=== PATIENT | female | born 1975 | race African-American/Black ===

== ENCOUNTER 2020-09-20 13:39 | Outpatient (CLI) | payer MEDICARE, MEDICAID, SELFPAY ==
[2020-09-20 15:19] LABS: Beta HCG Quantitative < 2.39 mIU/ML
[2020-09-24 05:04] LABS: LH 4.5 mIU/mL (***); Prolactin 16.3 ng/mL (***)
[2020-09-24 23:11] LABS: Estradiol, Ultrasensitive 241 pg/mL
== END 2020-09-20 13:40 | disposition home or self-care (01) ==
PROVIDERS: Visit Provider Student in an Organized Health Care Education/Training Program
DX: N92.6 Irregular menstruation, unspecified (principal); R10.2 Pelvic and perineal pain
CPT/HCPCS: 36415; 82670; 83001; 83002; 84146; 84443; 84702

== ENCOUNTER → 2021-03-07 02:53 | Outpatient (CLI) | payer MEDICARE, MEDICAID, SELFPAY ==
[2021-03-07 20:07] LABS: SARS-CoV-2 RNA PCR Negative
== END ==
PROVIDERS: PCP Student in an Organized Health Care Education/Training Program; Visit Provider Internal Medicine Gastroenterology
DX: Z01.812 Encounter for preprocedural laboratory examination (principal); Z20.822 Contact with and (suspected) exposure to COVID-19
CPT/HCPCS: C9803; U0003; U0005

== ENCOUNTER 2021-03-10 03:11 | Day surgery (SDC) | payer MEDICARE, MEDICAID, SELFPAY ==
[2021-03-02 10:33] VITALS: BMI 37.8
[2021-03-10] MEDS: LACTATED RINGERS 1,000 ML 150 ML IV CONT (07:31)
[2021-03-10 07:35] VITALS: BP 127/73; PULSE 89; RESP 16; TEMP 35.8; O2SAT 100; BMI 38.9
--- NOTE | 2021-03-10 08:14 | PM.HPGS ---
History of Present Illness History of Present Illness Consent: Risks, benefits, and alternatives have been discussed and questions answered. Patient agrees to proceed with procedure. Chief complaint: neoplasm screening Narrative: Lucia Disla is a 45 year old female here for first screening colonoscopy Review of Systems Constitutional: Constitutional: Denies headache(s) and Denies weakness Eyes: Eyes: Denies blurry vision ENT: Reports Normal hearing present, Denies headache(s) and Denies neck pain Cardiovascular: Cardiovascular: Denies chest pain and Denies dyspnea Respiratory: Respiratory: Denies dyspnea Gastrointestinal: Gastrointestinal: Reports no additional gastrointestinal complaints Genitourinary: Genitourinary: Denies dysuria Musculoskeletal: Musculoskeletal: Denies neck pain Integumentary/Breasts: Skin/Breast: Denies dry skin Neurologic: Reports Normal hearing present, Denies headache(s) and Denies weakness Psychiatric: Psychiatric: Denies anxiety Endocrine: Endocrine: Denies change in body appearance Hematologic/Lymphatic: Hematologic/Lymphatic: Denies easy bleeding Allergic/Immunologic: Allergic/Immunologic: Denies urticaria PMF Past Medical History Medical History (Updated 03/10/21 @ 08:14 by Mal Vazquez MD) Acid reflux Asthma Colon cancer screening COPD (chronic obstructive pulmonary disease) History of cocaine use stopped 2009 History of gallstones History of miscarriage History of vaginal delivery x 4 Thyroid disorder Surgical History Surgical History History of cholecystectomy History of hip replacement [place] teeth removed Social History Social History Smoking status: Current every day smoker Tobacco type: cigarettes Alcohol intake: former Substance use: never Substance use type: does not use Living arrangements: with family Spiritual care concerns: No Meds Home Medications and Allergies Home Medications Medication Instructions Recorded Confirmed Type No Home Medications 03/02/21 03/10/21 History Allergies Allergy/AdvReac Type Severity Reaction Status Date / Time ibuprofen Allergy Unknown RASH Verified 03/10/21 07:19 Vital Signs Vital Signs - 24 hr 03/10/21 07:35 Temperature 96.4 F L Pulse Rate 89 Respiratory Rate 16 Blood Pressure 127/73 Pulse Oximetry 100 Exam Const: General: comfortable and no acute distress HENMT: General nose exam: Normal nares present Eyes: General: appearance normal, both eyes and all related structures Neck: Neck: no JVD Resp: Auscultation: clear to auscultation bilaterally Cardio: Rate: regular rate Rhythm: regular rhythm GI: Inspection: non-distended GI Palp: Yes Soft to palpation Skin: General skin exam: normal color Neuro: General: gait normal Speech: normal speech Extrem: General: normal to inspection Psych: Mental Status: mental status grossly normal Assessment and Plan Assessment and plan (1) Colon cancer screening: Code(s): Z12.11 - Encounter for screening for malignant neoplasm of colon Status: Acute Assessment and Plan: colonoscopy
--- NOTE | 2021-03-10 08:18 | P.PNAN_ITS ---
Anes - Initial Pre Proc Eval Procedure: Operation Date: 03/10/21 08:30 Proposed Procedures p Screening Colonoscopy - Mal Vazquez MD Date/Time: 03/10/21 08:18 Surgeon: Mal Vazquez MD Pre Op Diagnosis: neoplasm screening Patient Data Age: 45 Gender: F Height: 5 ft 3 in Weight: 99.8 kg Last Vital Signs Temp 96.4 F L 03/10/21 07:35 Pulse 89 03/10/21 07:35 Resp 16 03/10/21 07:35 BP 127/73 03/10/21 07:35 Pulse Ox 100 03/10/21 07:35 Allergies Allergy/AdvReac Type Severity Reaction Status Date / Time ibuprofen Allergy Unknown RASH Verified 03/10/21 07:19 Home Medications Medication Instructions Recorded Confirmed Type No Home Medications 03/02/21 03/10/21 History Patient hx anesthesia problems: none Family hx anesthesia problems: none PMFSH Past Medical History Medical History (Updated 03/10/21 @ 08:14 by Mal Vazquez MD) Acid reflux Asthma Colon cancer screening COPD (chronic obstructive pulmonary disease) History of cocaine use stopped 2009 History of gallstones History of miscarriage History of vaginal delivery x 4 Thyroid disorder Surgical History Surgical History History of cholecystectomy History of hip replacement [place] teeth removed Social History Social History Smoking status: Current every day smoker Tobacco type: cigarettes Alcohol intake: former Substance use: never Substance use type: does not use Living arrangements: with family Spiritual care concerns: No Anes - Eval Final PreProcedure Day of Procedure 03/10/21 08:18 Patient weight: morbidly obese Heart: regular rate and rhythm Lungs: clear to auscultation Airway: Mallampati scale class II Neurological: alert and oriented Last oral intake: >/= 8 hours ASA classification: III Emergent: no Anesthetic plan: proceed Anesthesia type and monitoring: general GIVS and standard monitoring Informed Consent: The patient's anesthetic plan and its attendant risks and benefits were discussed with the patient/family/POA. Questions were solicited and answers provided to the satisfaction of the patient/family/POA.
[2021-03-10 08:45] VITALS: BP 103/39; PULSE 74; RESP 20; O2SAT 100
[2021-03-10 08:55] VITALS: BP 117/63; PULSE 73; RESP 20; O2SAT 100
[2021-03-10 09:05] VITALS: BP 132/68; PULSE 74; RESP 18; O2SAT 100
== END 2021-03-10 09:18 | disposition home or self-care (01) ==
PROVIDERS: PCP Student in an Organized Health Care Education/Training Program; Visit Provider Internal Medicine Gastroenterology
PROC: 0DJD8ZZ Inspection of Lower Intestinal Tract, Via Natural or Artificial Opening Endoscopic (ICD-10-PCS; CPT 45378; principal; 2021-03-10 08:30)
DX: Z12.11 Encounter for screening for malignant neoplasm of colon (principal); K57.30 Diverticulosis of large intestine without perforation or abscess without bleeding; D12.5 Benign neoplasm of sigmoid colon; K63.5 Polyp of colon; K64.8 Other hemorrhoids; Z87.891 Personal history of nicotine dependence; E66.01 Morbid (severe) obesity due to excess calories; Z68.39 Body mass index [BMI] 39.0-39.9, adult
CPT/HCPCS: 45385; 88305; C9803; J2001; J2704; J7120; U0003; U0005

== ENCOUNTER 2024-12-29 10:05 | Outpatient (CLI) | payer MEDICARE, MEDICAID, SELFPAY ==
--- NOTE | ~2024-12-29 | US_ITS ---
EXAMINATION: US thyroid DATE: 12/29/2024 10:43 INDICATION: Nontoxic thyroid nodule. TECHNIQUE: Multiple ultrasound images of the thyroid were obtained. COMPARISON: None. FINDINGS: The right thyroid lobe measures 5.8 x 2.1 x 2.9 cm. The left thyroid lobe measures 6.3 x 2.4 x 3.1 c m. In the left thyroid lobe, there is a 9 mm solid, hypoechoic, wider than tall nodule with smooth m argin and punctate echogenic foci (TI-RADS TR5). In the left thyroid lobe, there is a 2.8 cm almost e ntirely solid, hypoechoic, wider than tall nodule with smooth margin without echogenic foci (TR4). In the right thyroid lobe, there is a 13 mm mixed cystic and solid, hypoechoic, wider than tall nodule with lobular margin without echogenic foci (TR4). IMPRESSION: 1. Multinodular goiter. Ultrasound-guided fine-needle aspiration of the 2.8 cm left thyroid nodule is recommended. Reviewed, dictated and finalized at location B.
--- NOTE | ~2024-12-29 | XR_ITS ---
XR shoulder LT min 2V Ordering provider: Marv Figueroa, YESSICA History: . PAIN IN LT SHOULDER/NONTOX THYROID NODULE . Comparison: None. FINDINGS: BONES: No acute fracture or dislocation. JOINT SPACES: The acromioclavicular joint shows mild osteoarthritic changes. The glenohumeral joint i s normal. SOFT TISSUES: Normal. IMPRESSION: No acute osseous abnormality left shoulder. Mild osteoarthritic changes of the left acromioclavicular joint. Reviewed, dictated and finalized at location A.
--- OUTSIDE RECORDS SUMMARY | 2024-12-29 11:27 | XMS_ITS | Clinical Summary ---
Author Organization [facility] Address [address] [place] [id number] Care Team Providers Care Fire Engine Operator Name Role Phone Nuzhat Andersen MD Primary Care Provider [phone] Allergies Active Allergy Reactions Criticality Noted Date Comments Ibuprofen Rash Low 03/12/2022 Social History Tobacco Use Types Packs/Day Years Used Date Smoking Tobacco: Every Day Alcohol Use Standard Drinks/Week Comments Not Currently 0 (1 standard drink = 0.6 oz pur e alcohol) Comments Unknown Sex and Gender Information Value Date Recorded Sex Assigned at Not on file Legal Sex Female 9:00 AM CDT Gender Identity Not on file Sexual Orientation Not on file Last Filed Vital Signs Vital Sign Reading Time Taken Comments Blood Pressure 149/85 03/12/2022 2:30 PM CDT Pulse 63 03/12/2022 2:30 PM CDT Temperature 36.4 C (97.5 F) 03/12/2022 9:09 AM CDT Respiratory Rate 21 03/12/2022 2:30 PM CDT Oxygen Saturation 98% 03/12/2022 2:30 PM CDT Inhaled Oxygen Concentration - - Weight 88 kg (194 lb 0.1 oz) 03/12/2022 9:09 AM CDT Height 160 cm (5' 3 ) 03/12/2022 9:09 AM CDT Body Mass Index 34.37 03/12/2022 9:09 AM CDT Plan of Treatment Health Maintenance Due Date Last Done Comments Cervical Cancer Screening Pa p Smear (Age 30 to 64) Every 3 Years 1974 Colorectal Cancer Screening Colonoscopy (10 Years) 1974 Annual Physical 1977 Pneumococcal Vaccine: Pediatrics (0 to 5 Years) and At-Risk Patients (6 to 64 Years) (1 of 2 - PCV) 1980 Hepatitis C 1992 DTaP, Tdap and Td Vaccines ( 1 - Tdap) 1993 Hepatitis B Vaccines (1 of 3 - 19+ 3-dose series) 1993 Cervical Cancer Screening Pa p with HPV Testing (Age 30 to 64) Every 5 Years 2004 Cervical Cancer Screening wi th HPV 2004 Mammogram Screening 2014 COVID-19 Vaccine (3 - 2023-2 5 season) 2024 02/10/2021, 01/24/2021 Influenza Adult (#1) 2024 07/17/2016 Zoster Vaccines (1 of 2) 2024 Meningococcal B Vaccine Aged Out No l onger eligible based on patient's age to complete this topic Meningococcal Vaccine Aged Out No heike nona eligible based on patient's age to complete this topic RSV Immunizations Under 20 Months Aged Out No longer eligible b ased on patient's age to complete this topic Insurance MEDICAID UHC Care Teams Fire Engine Operator Relationship Specialty Start Date End Date Nuzhat Andersen MD [address] [place] [address] PCP - General INTERNAL MEDICINE 03/12/22
--- OUTSIDE RECORDS SUMMARY | 2024-12-29 11:27 | XMS_ITS | CONTINUITY OF CARE DOCUMENT ---
Author Name rosaline waggoner Address Unknown Organization [facility] Address [address] [address] [place] [address] Phone [phone] Care Team Providers Care [employer] Superintendent [employer] Name Role Phone Dejon Dong MD Unavailable [phone] Dejon Dong MD Unavailable INSURANCE PROVIDERS Payer name Policy type / Coverage type [place] red democrat ID [facility]ARE [id number] (PPO C-SNP) Commercial insurance company [id number] HEALTHCARE AND FAMILY SERVICES Medicaid 1 [id number]
--- OUTSIDE RECORDS SUMMARY | 2024-12-29 11:27 | XMS_ITS | Patient Health Summary ---
Author Organization [facility] Medi[employer]eting Address [address] [place] [address] Care Team Providers Care Business Services Sales Agent Name Role Phone Addi Emmanuel MD Primary Care Provider [phone] Note from [facility],non-owned Affiliates and Associated Physician Practices is amultiple site organization consisting of ambulatory clinics and hospital sitesin [place], [place], [place] and [place]. This disclosure is being madepursuant to the Care Everywhere program and may not contain all information available regarding this patient. Last updated 18.[facility] Allergies * Ibuprofen(Nausea and/or Vomiting,Rash) -High Criticality Medications * Be aware that medications may not be up to date on this document. Alwaysverify current medications with the patient. * Vit-Fe Fumarate-FA ( VITAMIN) 28-0.8 MG tablet Take 1 Tab by mouth once daily * calcium carbonate - vitamin D (CALTRATE + D) 600-800 MG-UNIT tablet Take 1,500 tablets by mouth 2 times daily * multivitamin (OPURITY) CHEW tablet Take 1 tablet every day by oral route. * fluconazole (DIFLUCAN) 150 MG tablet(Started 06/18/2018) * norethindrone (AYGESTIN) 5 MG tablet(Started 04/01/2018) * terconazole (TERAZOL 3) 0.8 % vaginal cream(Started 06/18/2018) * nitrofurantoin monohyd macro crystals (MACROBID) 100 MG capsule(Started 07/23/2018) Take 1 capsule by mouth 2 times daily with morning and evening meal * traMADol (ULTRAM) 50 MG tablet Take 50 mg by mouth every 6 hours as needed for Pain Active Problems Problem Noted Date Diagnosed Date Supervision of high-risk of elderly mu ltigravida 07/27/2016 Sickle cell trait 07/27/2016 Asthma 07/27/2016 GERD (gastroesophageal reflux disease) 6 Arthritis 07/27/2016 H/O degenerative disc disease 07/27/2016 Depression 07/27/2016 Schizophrenia 07/27/2016 Eczema 07/27/2016 Hearing loss in right ear 07/27/2016 H/O delivery, currently 016 Social History Tobacco Use Types Packs/Day Years Used Date Smoking Tobacco: Every Day Cigarettes Smokeless Tobacco: Never Tobacco Cessation:Ready to Q uit: No; Counseling Given: Yes Alcohol Use Standard Drinks/Week Comments No 0 (1 standard drink = 0.6 oz pur e alcohol) Sex and Gender Information Value Date Recorded Sex Assigned at Not on file Gender Identity Not on file Sexual Orientation Not on file Last Filed Vital Signs Vital Sign Reading Time Taken Comments Blood Pressure 133/67 05/07/2019 9:16 PM CDT Pulse 63 05/07/2019 10:18 PM CDT Temperature 36.6 C (97.9 F) 05/07/2019 6:08 PM CDT Respiratory Rate 19 05/07/2019 10:18 PM CDT Oxygen Saturation 100% 05/07/2019 10:18 PM CDT Inhaled Oxygen Concentration - - Weight 97.1 kg (214 lb) 05/07/2019 6:08 PM CDT Height 160 cm (5' 3 ) 05/07/2019 6:08 PM CDT Body Mass Index 37.91 05/07/2019 6:08 PM CDT Procedures * US PELVIS W TRANSVAG W DOP NON OB(Performed 05/07/2019) Performed for Pelvic pain in female * HCG BETA BLOOD QUANTITATIVE(Performed 05/07/2019) * CBC W AUTO DIFFERENTIAL(Performed 05/07/2019) * BASIC METABOLIC PANEL (CALCIUM TOTAL)(Performed 05/07/2019) * CULTURE URINE(Performed 07/23/2018) * MRI PITUITARY AND BRAIN WWO CONT(Performed 07/12/2018) Performed for Galactorrhea * CREATININE BLOOD - POINT OF CARE (IP)(Performed 07/12/2018) Performed for Galactorrhea * IMAGING/RADIOLOGY/XRAY RESULTS ORDER(Performed 07/07/2018) * PROC US ECHOGRAPHY TRANSVAGINAL(Performed 07/04/2018) Performed for Irregular periods/menstrual cycles * ANTI-MULLERIAN HORMONE(Performed 07/02/2018) * GLUCOSE - POINT OF CARE(Performed 08/23/2016) * CBC W AUTO DIFFERENTIAL(Performed 08/23/2016) * HCG BETA BLOOD QUANTITATIVE(Performed 08/23/2016) * TYPE + SCREEN PANEL(Performed 08/17/2016) * COMPREHENSIVE METABOLIC PANEL(Performed 08/17/2016) * CBC W AUTO DIFFERENTIAL(Performed 08/17/2016) * US OB TRANSVAGINAL DOPPLER(Performed 08/17/2016) Performed for Threatened miscarriage (HCC) * GLUCOSE PROTEIN KETONE URINE - POINT OF CAR(Performed 08/02/2016) * SONOGRAM - COMPLETE(Performed 08/02/2016) * XR CHEST 2VW(Performed 08/18/2014) * EKG 12-LEAD(Performed 08/18/2014) * LAB MISC TEST(Performed 05/04/2014) * LOGAN W/REFLEX IFA PATTERN(Performed 05/04/2014) * VITAMIN D 25-HYDROXY(Performed 05/04/2014) * RHEUMATOID FACTOR BLOOD QUANTITATIVE(Performed 05/04/2014) * ERYTHROCYTE SEDIMENTATION RATE(Performed 05/04/2014) * TSH(Performed 05/04/2014) * BASIC METABOLIC PANEL (CALCIUM TOTAL)(Performed 05/04/2014) * URIC ACID BLOOD(Performed 05/04/2014) * C-REACTIVE PROTEIN(Performed 05/04/2014) * CBC W AUTO DIFFERENTIAL(Performed 05/04/2014) * CBC W AUTO DIFFERENTIAL(Performed 05/04/2014) * SS-B (SJOGREN'S) ANTIBODY(Performed 03/17/2014) * SS-A (SJOGREN'S) ANTIBODY(Performed 03/17/2014) * LOGAN W/REFLEX IFA PATTERN(Performed 03/17/2014) * VITAMIN D 25-HYDROXY D2+D3(Performed 03/17/2014) * ALDOLASE(Performed 03/17/2014) * HEPATITIS B SURFACE ANTIGEN W RFLX CONFIRMATION(Performed 03/17/2014) * HEPATITIS B CORE ANTIBODY TOTAL(Performed 03/17/2014) * HEPATITIS C ANTIBODY(Performed 03/17/2014) * TSH(Performed 03/17/2014) * LDH BLOOD(Performed 03/17/2014) * CK BLOOD(Performed 03/17/2014) * COMPREHENSIVE METABOLIC PANEL(Performed 03/17/2014) * ERYTHROCYTE SEDIMENTATION RATE(Performed 03/17/2014) * C-REACTIVE PROTEIN(Performed 03/17/2014) * CBC W AUTO DIFFERENTIAL(Performed 03/17/2014) * URINALYSIS REFLEX TO MICROSCOPIC NO CULTURE(Performed 03/17/2014) * CBC W AUTO DIFFERENTIAL(Performed 03/17/2014) * XR SI JOINTS 3VW OR MORE(Performed 03/17/2014) * MRI CERVICAL SPINE WWO CONT(Performed 03/17/2014) * CREATININE BLOOD - POCT (IP) [facility](Performed 03/17/2014) * XR PELVIS W BILAT HIP 2VW(Performed 02/02/2014) * LOGAN BLOOD SCREEN(Performed 11/30/2013) * RHEUMATOID FACTOR BLOOD QUANTITATIVE(Performed 11/30/2013) * ERYTHROCYTE SEDIMENTATION RATE(Performed 11/30/2013) * VITAMIN D 25-HYDROXY(Performed 11/30/2013) * URIC ACID BLOOD(Performed 11/30/2013) * TSH(Performed 11/30/2013) * BASIC METABOLIC PANEL (CALCIUM TOTAL)(Performed 11/30/2013) * CBC W AUTO DIFFERENTIAL(Performed 11/30/2013) * XR LUMBAR SPINE 2 OR 3VW(Performed 11/13/2013) * XR LUMBAR SPINE 2 OR 3VW(Performed 08/28/2013) Results * US PELVIS W TRANSVAG W DOP NON OB (05/07/2019 8:33 PM CDT) Anatomical Region Laterality Modality Pelvis Ultrasound 05/07/2019 8:40 PM CDT Impressions 05/07/2019 8:43 PM CDT Left ovarian complex cyst. Follow-up recommended. Reading Radiologist: Jr Darby MD on 05/07/2019 at 8:43 PM Narrative 05/07/2019 8:43 PM CDT Pelvic sonogram. HISTORY: Pelvic pain, history of left ovarian cyst. Images show the uterus measuring 8.8 x 4.7 x 4.8 cm. Endometrial thickness is 8 mm. There are few calcifications seen in the endometrial canal. The right ovary is 1.1 x 2.0 cm with normal color flow signal and waveform analysis. Left ovary is 3.8 x 1.7 x 2.6 cm and contains a 2.4 x 1.6 cm echogenic cyst or mass which is nonspecific. Follow-up is recommended. There is normal color flow signal and waveform analysis. Procedure Note Jr Darby MD - 05/07/2019 Pelvic sonogram. HISTORY: Pelvic pain, history of left ovarian cyst. Images show the uterus measuring 8.8 x 4.7 x 4.8 cm. Endometrial thickness is 8 mm. There are few calcifications seen in the endometrial canal. The right ovary is 1.1 x 2.0 cm with normal color flow signal and waveform analysis. Left ovary is 3.8 x 1.7 x 2.6 cm and contains a 2.4 x 1.6 cm echogenic cyst or mass which is nonspecific. Follow-up is recommended. There is normal color flow signal and waveform analysis. IMPRESSION Left ovarian complex cyst. Follow-up recommended. Reading Radiologist: Jr Darby MD on 05/07/2019 at 8:43 PM Zahida Lucio MD US ORDERABLES * (ABNORMAL) CBC W AUTO DIFFERENTIAL (05/07/2019 6:16 PM CDT) Only the most recent of8 resultswithin the time period is included. WBC 8.4 4.4 - 10.7 x10E9/L 05/07/2019 6:33 PM CDT [facility] WBC Corrected x10E9/L 05/07/2019 6:33 PM CDT [facility] RBC 4.16 3.80 - 5.20 x10E12/L 05/07/2019 6:33 PM CDT [facility] Hemoglobin 11.5(L) 12.0 - 15.6 gm/dL 05/07/2019 6:33 PM CDT [facility] Hematocrit 35.6(L) 35.9 - 45.5 % 05/07/2019 6:33 PM CDT [facility] MCV 85.6 80.7 - 98.3 fl 05/07/2019 6:33 PM CDT [facility] MCH 27.6 26.7 - 34.0 pg 05/07/2019 6:33 PM CDT [facility] MCHC 32.3 30.8 - 35.9 gm/dL 05/07/2019 6:33 PM T [facility] Platelet Count 269 153 - 416 x10E9/L 05/07/2019 6:33 PM [facility] RDW-CV 14.6 12.1 - 14.9 % 05/07/2019 6:33 PM [facility] MPV 10.4 9.4 - 12.9 fl 05/07/2019 6:33 PM [facility] Neutrophils % 62.3 44.0 - 73.0 % 05/07/2019 6:33 PM [facility] Lymphocytes % 27.7 20.0 - 43.0 % 05/07/2019 6:33 PM [facility] Monocytes % 7.5 5.0 - 13.0 % 05/07/2019 6:33 PM [facility] Eosinophils % 1.8 0.0 - 6.0 % 05/07/2019 6:33 PM [facility] Basophils % 0.5 0.0 - 2.0 % 05/07/2019 6:33 PM [facility] Immature Granulocytes 0.2 0 - 1 % 05/07/2019 6:33 PM [facility] Neutrophil Absolute 5.23 2.01 - 7.14 x10E9/L 05/07/2019 6:33 PM [facility] Lymphocytes Absolute 2.32 1.07 - 3.94 x10E9/L 05/07/2019 6:33 PM [facility] Monocytes Absolute 0.63 0.26 - 1.07 x10E9/L 05/07/2019 6:33 PM [facility] Eosinophils Absolute 0.15 0 - 0.47 x10E9/L 05/07/2019 6:33 PM [facility] Basophils Absolute 0.04 0 - 0.08 x10E9/L 05/07/2019 6:33 PM [facility] Immature Granulocytes Absolute 0.02 0.00 - 0.06 x10E9/L 05/07/2019 6:33 PM [facility] nRBC Auto 0 /100 WBC 05/07/2019 6:33 PM [facility] Blood BLOOD SPECIMEN / Unknown Venipuncture / Unknown 05/07/2019 6:16 PM CDT 05/07/2019 6:24 PM CDT Zahida Lucio MD LAB - HEMATOLOGY ORD CLEMENTE Performing Organization Address City/[facility]/ZIP Co de Phone Number [facility] [address] [place] [address] * (ABNORMAL) BASIC METABOLIC PANEL (CALCIUM TOTAL) (05/07/2019 6:16 PM CDT) Only the most recent of3 resultswithin the time period is included. [facility] Glucose 79 74 - 106 mg/dL 05/07/2019 6:45 PM CDT [facility] Sodium 138 136 - 145 mmol/L 05/07/2019 6:45 PM CDT [facility] Potassium 4.3 3.5 - 5.1 mmol/L 05/07/2019 6:45 PM CDT [facility] Chloride 108(H) 98 - 107 mmol/L 05/07/2019 6:45 PM CDT [facility] CO2 21(L) 23 - 31 mmol/L 05/07/2019 6:45 PM CDT [facility] Calcium 9.5 8.4 - 10.2 mg/dL 05/07/2019 6:45 PM CDT [facility] Anion Gap 9 8 - 16 mmol/L 05/07/2019 6:45 PM CDT [facility] BUN 10 7 - 18.7 mg/dL 05/07/2019 6:45 PM CDT [facility] Creatinine 0.91 0.55 - 1.02 mg/dL 05/07/2019 6:45 PM CDT [facility] eGFR by MDRD >60 >60 mL/min/1.7 3m2 05/07/2019 6:45 PM CDT [facility] eGFR by MDRD >60 >60 mL/min/1.7 3m2 05/07/2019 6:45 PM CDT [facility] Blood BLOOD SPECIMEN / Unknown Venipuncture / Unknown 05/07/2019 6:16 PM CDT 05/07/2019 6:24 PM CDT Zahida Lucio MD LAB - CHEMISTRY HELEN LIN [facility] [address] [place] [address] * HCG BETA BLOOD QUANTITATIVE (05/07/2019 6:16 PM CDT) Only the most recent of2 resultswithin the time period is included. [facility] hCG Quantitative <1.20 mIU/mL 05/07/20 19 6:55 PM CDT [facility] Blood BLOOD SPECIMEN / Unknown Venipuncture / Unknown 05/07/2019 6:16 PM CDT 05/07/2019 6:24 PM CDT Narrative [facility] - 05/07/2019 6:55 PM CDT hCG Reference Range, mIU/mL: Males 0-2.0 Non Females 0-6.0 Perimenopausal Females ages 41-55* 0-7.7 Postmenopausal Females age >55* 0-14 Females, Weeks after Last Menstrual Period 0.2-1 week 5-50 1 - 2 weeks 50-500 2 - 3 weeks 100-5000 3 - 4 weeks 500-10,000 4 - 5 weeks 1000-50,000 5 - 6 weeks 10,000-100,000 6 - 8 weeks 15,000-200,000 2 - 3 months 10,000-100,000 Trophoblastic Disease >100,000 *In higher than expected hCG in females > age 40, a serum FSH >20 IU/L makes unlikely. Zahida Lucio MD LAB - CHEMISTRY HELEN Vivas Organization Address [facility] de Phone Number [facility] [address] [place] [address] * CULTURE URINE (07/23/2018) [facility] Culture [facility] Comment: CULTURE, URINE, ROUTINE MICRO NUMBER: [id number] TEST STATUS: FINAL SPECIMEN SOURCE: URINE, MIDSTREAM SPECIMEN QUALITY: ADEQUATE RESULT: Multiple organisms present, each less than 10,000 CFU/mL. These organisms, commonly found on external and internal genitalia, are considered to be colonizers. No further testing performed. Test Performed at: [facility] [id number] ARON MONTEMAYOR MD 07/23/2018 07/24/2018 1:5 3 AM CDT Tristin Valderrama MD LAB - MICROBIOLOGY ORDERABLES [facility] [address] [place] [address] * MRI PITUITARY AND BRAIN WWO CONT (07/12/2018 9:27 AM CDT) Anatomical Region Laterality Modality Magnetic Resonan ce 07/12/2018 9:31 AM CDT Impressions 07/12/2018 10:06 AM CDT No pituitary adenoma identified. Edited by Nighat Najera on 07/12/2018 9:51 AM Reading Radiologist: Jr Darby MD on 07/12/2018 at 10:06 AM Narrative 07/12/2018 10:06 AM CDT MRI BRAIN/MRI PITUITARY HISTORY: Galactorrhea. Images are provided using T1- and T2-weighted sequences. Postcontrast-enhanced images after 20 mL of Dotarem are also reviewed. The diffusion-weighted study shows no evidence for an acute infarct. No intracranial mass or hemorrhage is seen. No extracerebral fluid collections are present. Thin slice imaging through the pituitary gland shows the gland to have a normal size and homogeneous normal enhancement. The pituitary stalk is in midline. Procedure Note Jr Darby MD - 07/12/2018 MRI BRAIN/MRI PITUITARY HISTORY: Galactorrhea. Images are provided using T1- and T2-weighted sequences. Postcontrast-enhanced images after 20 mL of Dotarem are also reviewed. The diffusion-weighted study shows no evidence for an acute infarct. No intracranial mass or hemorrhage is seen. No extracerebral fluid collections are present. Thin slice imaging through the pituitary gland shows the gland to have a normal size and homogeneous normal enhancement. The pituitary stalk is in midline. IMPRESSION No pituitary adenoma identified. Edited by Nighat Najera on 07/12/2018 9:51 AM Reading Radiologist: Jr Darby MD on 07/12/2018 at 10:06 AM Tristin Valderrama MD MR ORDERABLES * CREATININE BLOOD - POINT OF CARE (IP) (07/12/2018 8:47 AM CDT) Creatinine POCT 1.16 0.7 - 1.2 mg/dL [facility] POCT TESTING QC Verified Yes Yes [facility] POC T TESTING Blood BLOOD SPECIMEN / Unknown 07/12/2018 8:47 AM CDT Tristin Valderrama MD LAB - POINT OF CARE ORDERABLES [facility] POCT TESTING [address] [phone] * IMAGING/RADIOLOGY/XRAY RESULTS ORDER (07/07/2018 7:31 AM CDT) Anatomical Region Laterality Modality Other Narrative 07/07/2018 7:31 AM CDT Ordered by an unspecified provider. Scanned Document IMAGING * PROC US ECHOGRAPHY TRANSVAGINAL (07/04/2018) Tristin Valderrama MD PROCEDURE/MINOR JUAN ALBERTO GICAL ORDERABLES * ANTI-MULLERIAN HORMONE (07/02/2018 11:25 AM CDT) Anti-Mullerian Hormone 0.305 ng/mL [facility] INSURANCE BILL Comment: For assays employing antibodies, the possibility exists for interference by heterophile antibodies in the samples.1 1. Danie Martinez. Interferences in Immunoassays - still a threat. Clin. Chem. 2000; 46: 5786-1969. Reference Range: Females 41 - 46y: 0.26 - 5.81 Median 0.58 AMH concentrations of >= 1.06 ng/mL is correlated with a better response to ovarian stimulation, produced more retrievable oocytes and higher odds of live according to Glemjer et al. Fertility and Sterility. 2010: 94:2459-7271. The current AMH test method correlates with the study method with a slope of 0.94. Females at risk of ovarian hyperstimulation syndrome or polycystic ovarian syndrome (PCOS) may exhibit elevated serum AMH concentrations. AMH levels from PCOS patients may be 2 to 5 fold higher than age-appropriate reference interval values. Granulosa cell tumors of the ovary may secrete AMH along with other tumor markers. Elevated AMH is not specific for malignancy, and the assay should not be used exclusively to diagnose or exclude an AMH-secreting ovarian tumor. FASTING 07/02/2018 11:2 5 AM CDT 07/02/2018 Narrative Resulting Agency Comment [employer] [address] [facility] [phone] Tristin Valderrama MD LAB - CHEMISTRY ORD ERABLES [facility] INSURANCE BILL [address] [place] [address] * GLUCOSE - POINT OF CARE (08/23/2016 12:31 PM CDT) Pathologist [facility] Glucose WB/POC 84 70 - 106 mg/dL 08/23/2016 12:37 PM CDT [facility] Blood BLOOD SPECIMEN / Unknown 08/23/2016 12:31 PM CDT 08/23/2016 12:37 PM CDT Constantine Cisse MD LAB - POINT OF CARE ORDERABLES Performing Organization Address [facility] Co de Phone Number [facility] [address] [place] [address] * TYPE + SCREEN PANEL (08/17/2016 10:40 PM CDT) Pathologist [facility] ABO A 08/17/2016 11:29 PM CDT [facility] Rh Type Positive 08/17/2016 11:29 PM CDT [facility] Comment:History check perfor med. Retype required. Antibody Screen Negative 08/17/2016 11:29 PM CDT [facility] Blood Bank BLOOD SPECIMEN / Unknown 08/17/2016 10:40 PM CDT 08/17/2016 11:00 PM CDT Jean Marie Grissom DO LAB - BLOOD BANK ORD ERABLES Performing Organization Address City/[facility]/ZIP Co de Phone Number [facility] [address] * COMPREHENSIVE METABOLIC PANEL (08/17/2016 10:40 PM CDT) Only the most recent of2 resultswithin the time period is included. Glucose 90 74 - 106 mg/dL 08/17/2016 11:06 PM CDT [facility] Sodium 138 136 - 145 mmol/L 08/17/2016 11:06 PM CDT [facility] Potassium 3.7 3.5 - 5.1 mmol/L 08/17/2016 11:06 PM CDT [facility] Chloride 106 98 - 107 mmol/L 08/17/2016 11:06 PM CDT [facility] CO2 24 22 - 31 mmol/L 08/17/2016 11:06 PM CDT [facility] Calcium 9.0 8.5 - 10.1 mg/dL 08/17/2016 11:06 PM CDT [facility] Anion Gap 8 5 - 20 mmol/L 08/17/2016 11:06 PM CDT [facility] BUN 17 7 - 21 mg/dL 08/17/2016 11:06 PM CDT [facility] Creatinine 1.00 0.50 - 1.30 mg/dL 08/17/2016 11:06 PM [facility] Alkaline Phosphatase 65 38 - 126 U/L 08/17/2016 11:06 PM CDT [facility] ALT 21 13 - 61 U/L 08/17/2016 11:06 PM CDT [facility] AST 8 5 - 40 U/L 08/17/2016 11:06 PM CDT [facility] Protein Total 7.5 6.4 - 8.2 gm/dL 08/17/2016 11:06 PM CDT [facility] Albumin 3.4 3.4 - 5.0 gm/dL 08/17/2016 11:06 PM CDT [facility] Bilirubin Total 0.4 0.2 - 1.0 mg/dL 08/17/2016 11:06 PM CDT [facility] eGFR by MDRD >60 >60 mL/min/1.7 3m2 08/17/2016 11:06 PM CDT [facility] eGFR by MDRD >60 >60 mL/min/1.7 3m2 08/17/2016 11:06 PM T [facility] Blood BLOOD SPECIMEN / Unknown Venipuncture / Unknown 08/17/2016 10:40 PM CDT 08/17/2016 10:51 PM CDT Jean Marie Grissom DO LAB - CHEMISTRY HELEN LIN [facility] [address] [place] [address] * US OB W TRANSVAG AND DOPPLER (08/17/2016 6:44 PM CDT) Anatomical Region Laterality Modality Ultrasound 08/17/2016 6:51 PM CDT Narrative 08/17/2016 6:53 PM CDT Symmetric ultrasound, transabdominal and transvaginal view HISTORY: with no heart tones at the doctor's office There are findings just of a 6 week 0 day intrauterine without evidence of heart tones. There is a 1.7 cm subchorionic hemorrhage. An irregular gestational sac is present. Normal ovaries are present measuring 2.6 cm on the right and 3.8 cm the left and which demonstrate normal color flow and spectral waveforms. Examination is limited and follow-up is recommended. Procedure Note Delroy Rivas MD - 08/17/2016 Symmetric ultrasound, transabdominal and transvaginal view HISTORY: with no heart tones at the doctor's office There are findings just of a 6 week 0 day intrauterine without evidence of heart tones. There is a 1.7 cm subchorionic hemorrhage. An irregular gestational sac is present. Normal ovaries are present measuring 2.6 cm on the right and 3.8 cm the left and which demonstrate normal color flow and spectral waveforms. Examination is limited and follow-up is recommended. Chiki Childs MD ORDERABLES * GLUCOSE PROTEIN KETONE URINE - POINT OF CAR (08/02/2016 10:14 AM CDT) Glucose UA neg Negative [facility] Protein UA neg Negative [facility] Ketone UA neg Negative [facility] QC Verified Yes Yes [facility] POC T TESTING Urine specimen (specimen) URINE / Unknown 08/02/2016 10:14 AM CDT Luis Mead MD LAB - POINT OF CARE ORDERABLES [facility] [address] [place] [address], [facility] [phone] * SONOGRAM - COMPLETE (08/02/2016 9:27 AM CDT) Anatomical Region Laterality Modality Other 08/02/2016 9:27 AM CDT Narrative 08/02/2016 10:07 AM CDT [facility] PHONE: FAX: Pat. Name: LUCIA DISLA Pat. 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 The gestational sac contains a pole. There is indeterminate heart motion. The right ovary was seen and appears normal. The left ovary was not visualized. There is no free fluid in the cul de sac. IMPRESSION: Single, unclear viability IUP at 06w4d RECOMMEND: Follow up ultrasound in 2 weeks to assess viability Thank you for allowing us the opportunity to care for your patient. Artemio Schroeder MD <Electronic Signature> 08/02/2016 10:05am Fletcher Sy MD [facility] ORDERABLES * XR CHEST 2VW (08/18/2014 10:34 AM CDT) Anatomical Region Laterality Modality Chest Other Impressions 08/18/2014 3:33 PM CDT Impression: No acute pulmonary process. This report has been dictated by Lorelei Pedraza MD (resident). This report was approved by Lorelei Pedraza M.D. on 08/18/2014 3:00 PM . I, Dr. RAYRAY YOUSSEF MD have personally reviewed and interpreted this examination/study. This report was electronically signed by RAYRAY YOUSSEF MD on 08/18/2014 3:33 PM . Narrative 08/18/2014 3:33 PM CDT Exam: Chest, PA and lateral views Date: 08/18/2014 History: Shortness of breath, cough Findings: There is no focal consolidation, pleural effusion, or pneumothorax. The cardiomediastinal silhouette is normal. The visible bony thorax is intact. Procedure Note Rayray Youssef MD - 01/18/2018 Exam: Chest, PA and lateral views Date: 08/18/2014 History: Shortness of breath, cough Findings: There is no focal consolidation, pleural effusion, or pneumothorax. Thecardiomediastinal silhouette is normal. The visible bony thorax isintact. IMPRESSION Impression: No acute pulmonary process. This report has been dictated by Lorelei Pedraza MD (resident). This report was approved by Lorelei Pedraza M.D. on 08/18/2014 3:00 PM. I, Dr. RAYRAY YOUSSEF MD have personally reviewed and interpreted thisexamination/study. This report was electronically signed by RAYRAY YOUSSEF MD on08/18/2014 3:33 PM . Martine Mukherjee MD DIAGNOSTIC IMAGING O RDERABLES * EKG 12-LEAD (08/18/2014 12:00 AM CDT) EKG [facility] Comment: Exam Date/Time: Aug 18 2014 08:52:04 Test Reason : chest pain Blood Pressure : / mmHG Vent. Rate : 092 BPM Atrial Rate : 092 BPM P-R Int : 164 ms QRS Dur : 076 ms QT Int : 352 ms P-R-T Axes : 053 058 021 degrees QTc Int : 435 ms Normal sinus rhythm Left atrial enlargement Borderline ECG No previous ECGs available Confirmed by MD Rut, Kim ([id number]), publications editor IOANA GIRON ([id number]) on 08/30/2014 12:41:52 PM Referred By: REFERRING NO Confirmed By:Kim Bettencourt MD 08/18/2014 Marbella Bergeron MD ECG ORDERABLES [facility] * LOGAN W/REFLEX IFA PATTERN (05/04/2014 9:17 AM CDT) Only the most recent of2 resultswithin the time period is included. LOGAN None Detected None Detected [facility] Blood specimen (specimen) BLOOD SPECIMEN / Unknown 05/04/2014 9:17 AM CDT 05/04/2014 9:51 AM CDT Tracey Camarena MD LAB - SEROLOGY ORDER DONTRELL Performing Organization Address City/[facility]/ZIP Co de Phone Number [address] [phone] * LAB MISC TEST (05/04/2014 9:17 AM CDT) Reference Lab Results SEE SCANNED REPORT [facility] REF LAB NON INTERF Other (qualifier value) 05/04/2014 9:17 AM CDT 05/04/2014 9:51 AM CDT Tracey Camarena MD LAB SEND OUT Performing Organization Address [facility] Co de Phone Number [facility] REF LAB NON INTERF * URIC ACID BLOOD (05/04/2014 9:17 AM CDT) Only the most recent of2 resultswithin the time period is included. [facility] Uric Acid 6.7 2.6 - 7.2 mg/dL [facility] Blood specimen (specimen) BLOOD SPECIMEN / Unknown 05/04/2014 9:17 AM CDT 05/04/2014 9:50 AM CDT Tracey Camarena MD LAB - CHEMISTRY HELEN LIN Performing Organization Address [facility] Co de Phone Number [address] [phone] * RHEUMATOID FACTOR BLOOD QUANTITATIVE (05/04/2014 9:17 AM CDT) Only the most recent of2 resultswithin the time period is included. Pathologist [facility] Rheumatoid Factor <15 <30 IU/mL [facility] Blood specimen (specimen) BLOOD SPECIMEN / Unknown 05/04/2014 9:17 AM CDT 05/04/2014 9:51 AM CDT Tracey Camarena MD LAB - CHEMISTRY HELEN LIN Performing Organization Address City/[facility]/ZIP Co de Phone Number [address] [phone] * C-REACTIVE PROTEIN (05/04/2014 9:17 AM CDT) Only the most recent of2 resultswithin the time period is included. C-Reactive Protein <0.5 <=0.5 mg/dL [facility] Blood specimen (specimen) BLOOD SPECIMEN / Unknown 05/04/2014 9:17 AM CDT 05/04/2014 9:51 AM CDT Tracey Caamrena MD LAB - CHEMISTRY [place]EN LIN [address] [phone] * (ABNORMAL) VITAMIN D 25-HYDROXY (05/04/2014 9:17 AM CDT) Only the most recent of2 resultswithin the time period is included. Vitamin D, 25 Hydroxy 22.4(L) >30.0 ng/mL [facility] Comment: The recommendations for 25-Hydroxy Vitamin D clinical decision points are as follows: Deficient: <20.0 ng/mL Insufficient: 20.0 - 30.0 ng/mL Sufficient: >30.0 ng/mL If the 25-Hydroxy Vitamin D results are inconsitent with clinical evidence, it is recommended that follow-up testing using a method such as LC/MS/MS be performed to confirm the result. Blood specimen (specimen) BLOOD SPECIMEN / Unknown 05/04/2014 9:17 AM CDT 05/04/2014 9:50 AM CDT Tracey Camarena MD LAB - CHEMISTRY [place]EN LIN [address] [phone] * (ABNORMAL) ERYTHROCYTE SEDIMENTATION RATE (05/04/2014 9:17 AM CDT) Only the most recent of3 resultswithin the time period is included. Erythrocyte Sedimentation Rate Westergren 38(H) 0 - 20 MM/HR [facility] Blood specimen (specimen) BLOOD SPECIMEN / Unknown 05/04/2014 9:17 AM CDT 05/04/2014 9:51 AM CDT Tracey Camarena MD LAB - HEMATOLOGY ORD ERABLES [address] [phone] * TSH (05/04/2014 9:17 AM CDT) Only the most recent of3 resultswithin the time period is included. TSH 0.569 0.350 - 4.940 uIU/mL [facility] Blood specimen (specimen) BLOOD SPECIMEN / Unknown 05/04/2014 9:17 AM CDT 05/04/2014 9:50 AM CDT Tracey Camarena MD LAB - CHEMISTRY ORDE RABTHAO Performing Organization Address City/[facility]/ZIP Co de Phone Number [address] [phone] * (ABNORMAL) VITAMIN D 25-HYDROXY D2+D3 BY TANDEM MASS (03/17/2014 3:08 PM CDT) 25-Hydroxy Vitamin D-2 3.1 ng/mL [facility] ([employer]) 25-Hydroxy Vitamin D-3 19.6 ng/mL [facility] ([employer]) 25-Hydroxy Vitamin D-2 + D-3 Total 22.7(L) 30.0 - 80.0 ng/mL [facility] ([employer]) Comment: INTERPRETIVE INFORMATION: 25-HydroxyVitamin D2 and D3, Serum 1-17 years: Deficiency: less than 20 ng/mL Optimum level: greater than or equal to 20 ng/mL* *(Gutiérrez CL Et al. Pediatrics 2008; 122: 1142-52.) 18 years and older: Deficiency: Less than 20 ng/mL Insufficiency: 20-29 ng/mL Optimum Level: 30-80 ng/mL Possible Toxicity: Greater than 150 ng/mL Separate values for Vitamin D2 and D3 are reported in addition to the total. Access complete set of age- and/or gender-specific reference intervals for this test in the [facility] Laboratory Test Directory ([employer]). Test developed and characteristics determined by [employer]. See Compliance Statement B: [employer]/ U.S. Patent No. [id number] Blood specimen (specimen) BLOOD SPECIMEN / Unknown 03/17/2014 3:08 PM CDT 03/17/2014 3:41 PM CDT Rand Smith MD LAB - CHEMISTRY ORDE RABLES [facility] (BEAKER) * (ABNORMAL) URINALYSIS REFLEX TO MICROSCOPIC NO CULTURE (03/17/2014 3:08 PM CDT) Color UA Yellow Straw, Yellow, Colorless, Light Yellow [facility] Clarity UA Clear Clear [facility] Specific Cromwell UA 1.014 1.001 - 1.030 [facility] pH UA 5.0 5.0 - 8.0 [facility] Protein UA Negative <=20 mg/dL [facility] Glucose UA Negative Negative mg/dL [facility] Ketone UA Negative Negative mg/dL [facility] Bilirubin UA Negative Negative mg/dL [facility] Blood UA Negative Negative [facility] Nitrite UA Negative Negative [facility] Leukocyte Esterase Negative Negative [facility] Urobilinogen UA <2.0 <2.0 mg/dL [facility] RBC UA 4 0 - 8 /HPF [facility] WBC UA <1 0 - 2 /HPF [facility] Squamous Epithelial Cells UA 7(H) 0 - 1 /HPF [facility] Mucus UA Rare(A) None /LPF [facility] Urine specimen (specimen) URINE SPECIMEN OBTAINED BY CLEAN CATCH PROCEDURE / Unknown 03/17/2014 3:08 PM CDT 03/17/2014 3:31 PM CDT Rand Smith MD LAB - URINALYSIS ORD ERABLES Performing Organization Address City/[facility]/ZIP Co de Phone Number [address] [phone] * SS-B (SJOGRENS'S) ANTIBODY (03/17/2014 3:08 PM CDT) SS-B LA Antibody 2.9 0.0 - 19.9 Units [facility] Comment: JUAN Antibody Numeric Result Interpretation: <20.0 Units: Negative 20.0 - 39.0 Units: Weakly Positive >39.0 Units: Positive Blood specimen (specimen) BLOOD SPECIMEN / Unknown 03/17/2014 3:08 PM CDT 03/17/2014 3:41 PM CDT Rand Smith MD LAB - CHEMISTRY HELEN LIN [address] [phone] * SS-A (SJOGREN'S) ANTIBODY (03/17/2014 3:08 PM CDT) SS-A (Ro) Antibody 4.2 0.0 - 19.9 Units [facility] Comment: JUAN Antibody Numeric Result Interpretation: <20.0 Units: Negative 20.0 - 39.0 Units: Weakly Positive >39.0 Units: Positive Blood specimen (specimen) BLOOD SPECIMEN / Unknown 03/17/2014 3:08 PM CDT 03/17/2014 3:41 PM CDT Rand Smith MD LAB - CHEMISTRY [place]EN LIN [address] [phone] * ALDOLASE (03/17/2014 3:08 PM CDT) Aldolase 5.9 1.2 - 7.6 U/L [facility] (BEAKER) Blood specimen (specimen) BLOOD SPECIMEN / Unknown 03/17/2014 3:08 PM CDT 03/17/2014 3:44 PM CDT Narrative [facility] (BEAKER) - 03/19/2014 3:19 PM CDT Performed at: [address] [place] [address], [place] [id number] Community Relations Manager: Jaime Selby MD, Phone: [phone] Rand Smith MD LAB - CHEMISTRY HELEN LIN [facility] (BEAKER) * (ABNORMAL) LDH BLOOD (03/17/2014 3:08 PM CDT) LDH Total 280(H) 125 - 243 Units/L [facility] Blood specimen (specimen) BLOOD SPECIMEN / Unknown 03/17/2014 3:08 PM CDT 03/17/2014 3:30 PM CDT Rand Smith MD LAB - CHEMISTRY HELEN LIN Performing Organization Address [facility] Co de Phone Number [address] [phone] * (ABNORMAL) HEPATITIS B CORE ANTIBODY (03/17/2014 3:08 PM CDT) HBc Antibody Total Reactive(A ) Non-reacti ve [facility] Blood specimen (specimen) BLOOD SPECIMEN / Unknown 03/17/2014 3:08 PM CDT 03/17/2014 3:42 PM CDT Rand Smith MD LAB - CHEMISTRY HELEN LIN Performing Organization Address [facility] Co de Phone Number [address] [phone] * HEPATITIS B SURFACE ANTIGEN W RFLX CONFIRMATION (03/17/2014 3:08 PM CDT) Hepatitis B Virus Surface Antigen Non-reacti ve Non-reacti ve [facility] Blood specimen (specimen) BLOOD SPECIMEN / Unknown 03/17/2014 3:08 PM CDT 03/17/2014 3:42 PM CDT Rand Smith MD LAB - CHEMISTRY HELEN LIN Performing Organization Address [facility]/[place] [address], [place] [phone] * (ABNORMAL) CK BLOOD (03/17/2014 3:08 PM CDT) Pathologist [facility] CK Total 574(H) 30 - 200 Units/L [facility] Blood specimen (specimen) BLOOD SPECIMEN / Unknown 03/17/2014 3:08 PM CDT 03/17/2014 3:30 PM CDT Rand Smith MD LAB - CHEMISTRY HELEN LIN Performing Organization Address City/[facility]/ZIP Co de Phone Number [address] [phone] * HEPATITIS C ANTIBODY (03/17/2014 3:08 PM CDT) [facility] Hepatitis C Antibody Non-react jase Non-reac tive [facility] Comment: Hepatitis C Antibody screen indicates no serologic evidence of past or current infection with Hepatitis C Virus. Patients with unexplained liver disease who are immunocompromised or suspected of having acute Hepatitis C infection may benefit from Nucleic Acid Test (SARA) for Hepatitis C Viral RNA to confirm Hepatitis C status. Blood specimen (specimen) BLOOD SPECIMEN / Unknown 03/17/2014 3:08 PM CDT 03/17/2014 3:42 PM CDT Rand Smith MD LAB - CHEMISTRY HELEN ILN Performing Organization Address [facility]/ZIP Co de Phone Number [address] [phone] * XR SI JOINTS 3VW OR MORE (03/17/2014 2:10 PM CDT) Anatomical Region Laterality Modality Pelvis, Lower Extremity Other Impressions 03/18/2014 12:08 PM CDT Impression: Normal-appearing sacroiliac joints allowing for limited evaluation on the left secondary to nonstandard positioning. Report dictated by Rayray Soto M.D. (resident). This report was approved by Rayray Soto M.D. on 03/18/2014 11:53 AM . IDr. RAYRAY MD have personally reviewed and interpreted this examination/study. This report was electronically signed by RAYRAY YOUSSEF MD on 03/18/2014 12:08 PM . Narrative 03/18/2014 12:08 PM CDT Exam: Sacroiliac joints, 3 views. History: Sacroiliac joint tenderness Comparison: None available. Findings: The left sacroiliac radiograph is nonstandard. There is no evidence of ankylosis or erosive changes of the sacroiliac joints. There is no acute fracture or dislocation. Mild degenerative changes of the pubic symphysis. There is no focal soft tissue swelling. Procedure Note Rayray Youssef MD - 01/18/2018 Exam: Sacroiliac joints, 3 views. History: Sacroiliac joint tenderness Comparison: None available. Findings: The left sacroiliac radiograph is nonstandard. There is noevidence of ankylosis or erosive changes of the sacroiliac joints. Thereis no acute fracture or dislocation. Mild degenerative changes of thepubic symphysis. There is no focal soft tissue swelling. IMPRESSION Impression: Normal-appearing sacroiliac joints allowing for limited evaluation on theleft secondary to nonstandard positioning. Report dictated by Rayray Soto M.D. (resident). This report was approved by Rayray Soto M.D. on 03/18/2014 11:53 AM. I, Dr. RAYRAY YOUSSEF MD have personally reviewed and interpreted thisexamination/study. This report was electronically signed by RAYRAY YOUSSEF MD on 03/18/201412:08 PM . Rand Sarah BISHOP DIAGNOSTIC IMAGING O RDERABLES * MRI CERVICAL SPINE WWO CONT (03/17/2014 1:25 PM CDT) Anatomical Region Laterality Modality Spine Other Impressions 03/17/2014 3:35 PM CDT IMPRESSION: 1. Mild degenerative disc disease at C4-C5 and C5-C6 without central canal stenosis. 2. A 1.3 cm left thyroid lobe nodule. This can be further evaluated with thyroid ultrasound. This report was approved by Rachel Malave M.D. on 03/17/2014 2:30 PM . I, Dr. Sunil Fernández M.D. have personally reviewed and interpreted this examination/study. This report was electronically signed by Sunil Fernández M.D. on 03/17/2014 3:35 PM . Narrative 03/17/2014 3:35 PM CDT EXAMINATION: Magnetic resonance imaging (MRI) of the cervical spine without and with contrast HISTORY: Neck pain, left-sided weakness TECHNIQUE: MRI of the cervical spine was performed prior to and following the uneventful administration of 10 mL Gadavist intravenous contrast according to standard protocol. FINDINGS: No prior study is available for comparison. The alignment is normal. Vertebral bodies are normal in height without evidence of compression fractures. Marrow signal intensity is normal. The craniocervical junction and visualized portions of the posterior fossa appear normal. The spinal cord appears normal. No abnormal cord enhancement is seen. The intervertebral discs are normal in height. No soft tissue abnormality is identified. Normal flow voids are identified in the vertebral arteries. There is a 1.3 cm nodule in the left lobe of the thyroid. C2-3: There is no disc bulge. There is no central canal stenosis. There is no facet osteoarthritis. There is no uncovertebral joint osteoarthritis. There is no neural foraminal stenosis. C3-4: There is no disc bulge. There is no central canal stenosis. There is no facet osteoarthritis. There is no uncovertebral joint osteoarthritis. There is no neural foraminal stenosis. C4-5: There is no disc bulge. There is no central canal stenosis. There is no facet osteoarthritis. There is no uncovertebral joint osteoarthritis. There is no neural foraminal stenosis. C5-6: There is mild diffuse disc bulge. There is no central canal stenosis. There is no facet osteoarthritis. There is mild right uncovertebral joint osteoarthritis. There is mild neural foraminal stenosis. C6-7: There is minimal disc bulge. There is no central canal stenosis. There is no facet osteoarthritis. There is no uncovertebral joint osteoarthritis. There is no neural foraminal stenosis. C7-T1: There is no disc bulge. There is no central canal stenosis. There is no facet osteoarthritis. There is no uncovertebral joint osteoarthritis. There is no neural foraminal stenosis. Procedure Note Sunil Fernández MD - 01/18/2018 EXAMINATION: Magnetic resonance imaging (MRI) of the cervical spinewithout and with contrast HISTORY: Neck pain, left-sided weakness TECHNIQUE: MRI of the cervical spine was performed prior to and followingthe uneventful administration of 10 mL Gadavist intravenous contrastaccording to standard protocol. FINDINGS: No prior study is available for comparison. The alignment is normal. Vertebral bodies are normal in height withoutevidence of compression fractures. Marrow signal intensity is normal. Thecraniocervical junction and visualized portions of the posterior fossaappear normal. The spinal cord appears normal. No abnormal cord enhancement is seen. The intervertebral discsare normal in height. No soft tissue abnormality is identified. Normalflow voids are identified in the vertebral arteries. There is a 1.3 cmnodule in the left lobe of the thyroid. C2-3: There is no disc bulge. There is no central canal stenosis. There isno facet osteoarthritis. There is no uncovertebral joint osteoarthritis.There is no neural foraminal stenosis. C3-4: There is no disc bulge. There is no central canal stenosis. There isno facet osteoarthritis. There is no uncovertebral joint osteoarthritis.There is no neural foraminal stenosis. C4-5: There is no disc bulge. There is no central canal stenosis. There isno facet osteoarthritis. There is no uncovertebral joint osteoarthritis.There is no neural foraminal stenosis. C5-6: There is mild diffuse disc bulge. There is no central canalstenosis. There is no facet osteoarthritis. There is mild rightuncovertebral joint osteoarthritis. There is mild neural foraminalstenosis. C6-7: There is minimal disc bulge. There is no central canal stenosis.There is no facet osteoarthritis. There is no uncovertebral jointosteoarthritis. There is no neural foraminal stenosis. C7-T1: There is no disc bulge. There is no central canal stenosis. Thereis no facet osteoarthritis. There is no uncovertebral jointosteoarthritis. There is no neural foraminal stenosis. IMPRESSION IMPRESSION: 1. Mild degenerative disc disease at C4-C5 and C5-C6 without central canalstenosis. 2. A 1.3 cm left thyroid lobe nodule. This can be further evaluated withthyroid ultrasound. This report was approved by Rachel Malave M.D. on 03/17/2014 2:30 PM . I, Dr. Sunil Fernández M.D. have personally reviewed and interpreted thisexamination/study. This report was electronically signed by Sunil Fernández M.D. on 03/17/20143:35 PM . Tracey Camarena MD MR ORDERABLES * CREATININE BLOOD - POCT (IP) [facility] (03/17/2014) Creatinine POCT 1.17 0.3 - 1.3 mg/dL [facility] eGFR POCT 60 60 ml/min [facility] 03/17/2014 Tracey Camarena MD LAB - POINT OF CARE ORDERABLES [facility] * XR PELVIS W BILAT HIP 2VW (02/02/2014 5:34 PM CDT) Anatomical Region Laterality Modality Pelvis, Lower Extremity Other Impressions 02/03/2014 11:49 AM CDT Impression: Unremarkable x-ray both hip joints. Mild degenerative changes at the symphysis pubis. This report was approved by Flavia Guzmán M.D. on 02/03/2014 11:16 AM . IDr. RAYRAY MD have personally reviewed and interpreted this examination/study. This report was electronically signed by RAYRAY YOUSSEF MD on 02/03/2014 11:49 AM . Narrative 02/03/2014 11:49 AM CDT Exam: X-ray both hips, 2 views. Date: 02/03/14. Comparison: None. History: arthritis Findings: Right side: There is no acute fracture or dislocation. The right hip joint space is maintained. Preserved spherical configuration of the femoral head. The femoral head is well covered within the acetabulum. The periarticular soft tissues are unremarkable. Left side: There is no acute fracture or dislocation. The right hip joint space is maintained. Preserved spherical configuration of the femoral head. The femoral head is well covered within the acetabulum. The periarticular soft tissues are unremarkable. Mild degenerative changes are seen at the symphysis pubis. Procedure Note Rayray Youssef MD - 01/18/2018 Exam: X-ray both hips, 2 views. Date: 02/03/14. Comparison: None. History: arthritis Findings: Right side: There is no acute fracture or dislocation. The right hip joint space ismaintained. Preserved spherical configuration of the femoral head. Thefemoral head is well covered within the acetabulum. The periarticular softtissues are unremarkable. Left side: There is no acute fracture or dislocation. The right hip joint space ismaintained. Preserved spherical configuration of the femoral head. Thefemoral head is well covered within the acetabulum. The periarticular softtissues are unremarkable. Mild degenerative changes are seen at the symphysis pubis. IMPRESSION Impression: Unremarkable x-ray both hip joints. Mild degenerative changes at the symphysis pubis. This report was approved by Flavia Guzmán M.D. on 02/03/2014 11:[address] RAYRAY Gold MD have personally reviewed and interpreted thisexamination/study. This report was electronically signed by RAYRAY YOUSSEF MD on 02/03/201411:49 AM . Tracey Camarena MD DIAGNOSTIC IMAGING O RDERABLES * LOGAN BLOOD SCREEN (11/30/2013 11:22 AM PARK WORKER) LOGAN NONE DETECTED NONE DETECT [facility] 11/30/2013 11:2 2 AM PARK WORKER 11/30/2013 1:05 PM PARK WORKER Kameron Weaver III, MD LAB - TOBACCO SAMPLE PULLER RY ORDERABLES Performing Organization Address City/State/[facility] Co de Phone Number [address] [phone] * XR LUMBAR SPINE 2 OR 3VW (11/13/2013 9:12 AM PARK WORKER) Only the most recent of2 resultswithin the time period is included. Anatomical Region Laterality Modality Spine Other Impressions 11/13/2013 11:04 AM PARK WORKER IMPRESSION: Mild degenerative disc disease at L4-L5, unchanged. Report dictated by Leo Berger MD (resident). Dr. ANTIONETTE Gold M.D. have personally reviewed and interpreted this examination/study. This report was electronically signed by ANTIONETTE RODRIGUEZ M.D. on 11/13/2013 11:04 AM . Narrative 11/13/2013 11:04 AM PARK WORKER EXAM: LUMBAR SPINE, 2 VIEWS REASON: Lower back pain COMPARISON: 08/28/2013 FINDINGS: The bony alignment is maintained. The vertebral body heights are maintained. Mild narrowing of the L4-L5 disc space is unchanged. The other disc spaces are normal. There is no subluxation or compression deformity. Procedure Note Antionette Rodriguez MD - 01/18/2018 EXAM: LUMBAR SPINE, 2 VIEWS REASON: Lower back pain COMPARISON: 08/28/2013 FINDINGS: The bony alignment is maintained. The vertebral body heights aremaintained. Mild narrowing of the L4-L5 disc space is unchanged. The otherdisc spaces are normal. There is no subluxation or compressiondeformity. IMPRESSION IMPRESSION: Mild degenerative disc disease at L4-L5, unchanged. Report dictated by Leo Berger MD (resident). I, Dr. ANTIONETTE RODRIGUEZ M.D. have personally reviewed and interpreted thisexamination/study. This report was electronically signed by ANTIONETTE RODRIGUEZ M.D. on 11/13/201311:04 AM . Yury Montalvo MD DIAGNOSTIC IMAGING O RDERABLES Care Teams Business Services Sales Agent Relationship Specialty Start Date End Date Addi Emmanuel MD [facility] [place] [phone] PCP - General 05/20/19
--- OUTSIDE RECORDS SUMMARY | 2024-12-29 11:27 | XMS_ITS | Clinical Summary ---
Author Organization [facility] [employer] Address [address] [place] [address] Care Team Providers Care Computer Systems Security Administrator Name Role Phone Addi Emmanuel MD Primary Care Provider Source Comments [facility],non-owned Affiliates and Associated Physician Practices is amultiple site organization consisting of ambulatory clinics and hospital sitesin [place], [place], [place] and [place]. This disclosure is being madepursuant to the Care Everywhere program and may not contain all information available regarding this patient. Last updated 18.[facility] Allergies Active Allergy Reactions Criticality Noted Date Comments Ibuprofen Nausea and/or Vomiting,Rash High 08/23/20 16 Medications * Be aware that medications may not be up to date on this document. Alwaysverify current medications with the patient. Medication Sig Dispensed Refills Start Date End Date Status Vit-Fe Fumarate-FA ( VITAMIN) 28-0.8 MG tablet Take 1 Tab by mouth once daily Active calcium carbonate - vitamin D (CALTRATE + D) 600-800 MG-UNIT tablet Take 1,500 tablets by mouth 2 times daily Active multivitamin (OPURITY) CHEW tablet Take 1 tablet every day by oral route. Active fluconazole (DIFLUCAN) 150 MG tablet 0 06/18/2018 Active norethindrone (AYGESTIN) 5 MG tablet 0 04/01/2018 Active terconazole (TERAZOL 3) 0.8 % vaginal cream 0 06/18/2018 Active nitrofurantoin monohyd macro crystals (MACROBID) 100 MG capsule Take 1 capsule by mouth 2 times daily with morning and evening meal 14 capsule 07/23/2018 Active traMADol (ULTRAM) 50 MG tablet Take 50 mg by mouth every 6 hours as needed for Pain Active Active Problems Patient Care Coordination No te Formatting of this note migh t be different from the original. [facility] 07/2016 Problem Noted Date Diagnosed Date Supervision of high-risk of elderly mu ltigravida 07/27/2016 Overview (07/27/2016): PNL: Ab: GCT: HIV: GBS: Dating: H/H/Plt: Hgb Elec: UDS: QS: CF: Pap: Negative Gc/Chl: Neg/Neg Trich: Negative UCx: Breast/Bottle: Family Planning: Sickle cell trait 07/27/2016 Asthma 07/27/2016 Overview (07/27/2016): Hospitalized for 4 days this past year GERD (gastroesophageal reflux disease) 6 Arthritis 07/27/2016 Overview (07/27/2016): In back, neck and ankles H/O degenerative disc disease 07/27/2016 Depression 07/27/2016 Overview (07/27/2016): Not currently on medication Schizophrenia 07/27/2016 Overview (07/27/2016): Diagnosed as a child Eczema 07/27/2016 Hearing loss in right ear 07/27/2016 Overview (07/27/2016): Sounds are muffled H/O delivery, currently 016 Overview (07/27/2016): G1 at 34 weeks Family History Medical History Relation Name Comments Cancer - Other Other Maternal aunt bone? Relation Name Status Comments Other Social History Tobacco Use Types Packs/Day Years [...] Mass Index 37.91 05/07/2019 6:08 PM CDT Plan of Treatment Health Maintenance Due Date Last Done Comments COLOGUARD (AGES 45-75) - COLON CA SCREENING 1974 COLON MONITORING 1974 COLONOSCOPY - COLON CA SCREENING 1974 CT COLONOGRAPHY - COLON CA SCREENING 1974 Colorectal Cancer Screening 1974 FIT - COLON CA SCREENING 1974 FLEX SIG - COLON CA SCREENING 1974 LIPID TESTING 1974 MAMMOGRAM 1974 HIV SCREENING 1989 DTAP/TDAP/TD VACCINES (1 - Tdap) 1993 HEPATITIS B VACCINE (1 of 3 - 19+ 3-dose series) 1993 PNEUMOCOCCAL VACCINE 50+ (1 of 2 - PCV) 1993 SCREENING FOR DIABETES 05/07/2022 9, 08/23/2016, 08/17/2016, Additional history exists COVID-19 VACCINE ( - 2023- season) 2024 INFLUENZA VACCINE (#1) 2024 DEPRESSION SCREENING 10/21/2024 ZOSTER VACCINE (1 of 2) 2024 HEPATITIS C SCREENING Completed 03/17/2014 HIB VACCINE Aged Out No longer eligi ble based on patient's age to complete this topic HPV VACCINE Aged Out No longer eligi ble based on patient's age to complete this topic MENINGOCOCCAL (Group B) VACCINE Aged Out No longer eligible based on patient's age to complete this topic MENINGOCOCCAL VACCINE Aged Out No heike nona eligible based on patient's age to complete this topic Procedures Procedure Name Priority Date/Time Associated Diagnosis Comments BASIC METABOLIC PANEL (CALCIUM TOTAL) STAT 05/07/2019 6:16 PM CDT HEPATITIS C ANTIBODY Timed 03/17/2014 3:08 PM CDT from Last 3 Months or Most Recently Relevant to Health Maintenance Results * (ABNORMAL) BASIC METABOLIC PANEL (CALCIUM TOTAL) (05/07/2019 6:16 PM CDT) Glucose 79 74 - 106 mg/dL 05/07/2019 6:45 PM CDT [facility] Sodium 138 136 - 145 mmol/L 05/07/2019 6:45 PM CDT [facility] Potassium 4.3 3.5 - 5.1 mmol/L 05/07/2019 6:45 PM CDT [facility] Chloride 108(H) 98 - 107 mmol/L 05/07/2019 6:45 PM CDT [facility] CO2 21(L) 23 - 31 mmol/L 05/07/2019 6:45 PM CDT [facility] Calcium 9.5 8.4 - 10.2 mg/dL 05/07/2019 6:45 PM CDT [facility] Anion Gap 9 8 - 16 mmol/L 05/07/2019 6:45 PM CDT [facility] BUN 10 7 - 18.7 mg/dL 05/07/2019 6:45 PM CDT [facility] Creatinine 0.91 0.55 - 1.02 mg/dL 05/07/2019 6:45 PM CDT [facility] eGFR by MDRD >60 >60 mL/min/1.7 3m2 05/07/2019 6:45 PM CDT [facility] eGFR by MDRD >60 >60 mL/min/1.7 3m2 05/07/2019 6:45 PM CDT [facility] Blood BLOOD SPECIMEN / Unknown Venipuncture / Unknown 05/07/2019 6:16 PM CDT 05/07/2019 6:24 PM CDT Zahida Lucio MD LAB - CHEMISTRY [place] [facility] [address] [place] [address] * HEPATITIS C ANTIBODY (03/17/2014 3:08 PM CDT) Hepatitis C Antibody Non-react jase Non-reac tive [facility] Comment: Hepatitis C Antibody screen indicates no [...] Smith MD LAB - CHEMISTRY [facility] [address] [place] [address] from Last 3 Months or Most Recently Relevant to Health Maintenance Care Teams Computer Systems Security Administrator Relationship Specialty Start Date End Date Addi Emmanule MD [address] [place] [address] PCP - General 05/20/19
--- OUTSIDE RECORDS SUMMARY | 2024-12-29 11:27 | XMS_ITS | Referral Summary ---
Author Organization [facility] [employer] Address [address] [place] [address] Care Team Providers Care Mechanic Field Service Name Role Phone Addi Emmanuel MD Primary Care Provider Source Comments [facility] [facility],non-owned Affiliates and Associated Physician Practices is amultiple site organization consisting of ambulatory clinics and hospital sitesin [place], [place], [place] and [place]. This disclosure is being madepursuant to the Care Everywhere program and may not contain all information available regarding this patient. Last updated 18.[facility] Allergies Active Allergy Reactions Criticality Noted Date [...] 016 Overview (07/27/2016): G1 at 34 weeks Social History Tobacco Use Types Packs/Day Years [...] 05/07/2019 6:08 PM CDT Plan of Treatment Not on file Procedures Procedure Name Priority Date/Time Associated Diagnosis Comments BASIC METABOLIC PANEL (CALCIUM TOTAL) STAT 05/07/2019 6:16 PM CDT HEPATITIS C ANTIBODY Timed 03/17/2014 3:08 PM CDT from Last 3 Months or Most Recently Relevant to Health Maintenance Results * (ABNORMAL) BASIC METABOLIC PANEL (CALCIUM TOTAL) (05/07/2019 6:16 PM CDT) Glucose 79 74 - 106 mg/dL 05/07/2019 6:45 PM CDT [facility] Sodium 138 136 - 145 mmol/L 05/07/2019 6:45 PM CDT [facility] Potassium 4.3 3.5 - 5.1 mmol/L 05/07/2019 6:45 PM CDT [facility] Chloride 108(H) 98 - 107 mmol/L 05/07/2019 6:45 PM CDT [facility] CO2 21(L) 23 - 31 mmol/L 05/07/2019 6:45 PM CDT [facility] Calcium 9.5 8.4 - 10.2 mg/dL 05/07/2019 6:45 PM CDT [facility] Anion Gap 9 8 - 16 mmol/L 05/07/2019 6:45 PM CDT [facility] BUN 10 7 - 18.7 mg/dL 05/07/2019 6:45 PM CDT [facility] Creatinine 0.91 0.55 - 1.02 mg/dL 05/07/2019 6:45 PM CDT [facility] eGFR by MDRD >60 >60 mL/min/1.7 3m2 05/07/2019 6:45 PM CDT [facility] eGFR by MDRD >60 >60 mL/min/1.7 3m2 05/07/2019 6:45 PM CDT [facility] Blood BLOOD SPECIMEN / Unknown Venipuncture / Unknown 05/07/2019 6:16 PM CDT 05/07/2019 6:24 PM CDT Zahida Lucio MD LAB - CHEMISTRY [facility] [address] [place] [address] * HEPATITIS C ANTIBODY (03/17/2014 3:08 PM CDT) [facility] Hepatitis C Antibody Non-react [facility] Comment: Hepatitis C Antibody screen indicates no [...] Smith MD LAB - CHEMISTRY [place] [address] [facility] [address] [place] [address] from Last 3 Months or Most Recently Relevant to Health Maintenance Care Teams Mechanic Field Service Relationship Specialty Start Date End Date Addi Emmanuel MD [address] [place] [address] PCP - General 05/20/19
== END 2024-12-29 10:06 | disposition home or self-care (01) ==
PROVIDERS: PCP Student in an Organized Health Care Education/Training Program; Visit Provider Physician Assistant Medical
DX: E04.2 Nontoxic multinodular goiter (principal); M19.012 Primary osteoarthritis, left shoulder
CPT/HCPCS: 73030; 76536

== ENCOUNTER 2025-01-07 08:04 | Outpatient (CLI) | payer MEDICARE, MEDICAID, SELFPAY ==
--- NOTE | ~2025-01-07 | US_ITS ---
Pelvic ultrasound. Clinical History: Postmenopausal bleeding Technique: Realtime transabdominal and transvaginal scanning of the pelvis was performed. Color flow Doppler and Doppler spectral analysis were performed. Findings: The uterus is anteverted, and measures 8.1 x 3.9 x 4.7 cm.. The endometrial stripe has a t hickness of 6 mm. No focal mass is identified. The right ovary measures 2.5 x 1.6 x 1.9 cm. No significant right ovarian or adnexal mass is seen. The left ovary measures 2.2 x 0.8 x 2.6 cm. No significant left ovarian or adnexal mass is seen. There is no evidence of free fluid in the cul de sac. Impression: Borderline thickened endometrium at 6 mm. Reviewed, dictated and finalized at [facility]. Impression: Borderline thickened endometrium at 6 mm.
== END 2025-01-07 08:05 | disposition home or self-care (01) ==
PROVIDERS: PCP Physician Assistant Medical; Visit Provider Physician Assistant Medical
DX: R93.89 Abnormal findings on diagnostic imaging of other specified body structures (principal); N95.0 Postmenopausal bleeding
CPT/HCPCS: 76830; 76856

== ENCOUNTER 2025-07-06 11:07 | Outpatient (CLI) | payer MEDICARE, MEDICAID, SELFPAY ==
--- NOTE | ~2025-07-06 | XR_ITS ---
EXAM/PROCEDURE: XR chest 2V - 07/06/2025 12:10 CDT HISTORY: 49 years old Female with Viral upper respirator tact infection, productive cough, sob TECHNIQUE: Two view(s) of the chest. COMPARISON: None available. FINDINGS: LUNGS/ PLEURA: No focal consolidation. Mild perihilar bronchial wall thickening. HEART/ MEDIASTINUM: Heart appears normal in size. BONES: Degenerative changes. OTHER: Visualized upper abdomen is unremarkable. IMPRESSION: No focal consolidation. Mild perihilar bronchial wall thickening, findings suggestive of respiratory bronchiolitis. Reviewed, dictated and finalized at location N. IMPRESSION: No focal consolidation. Mild perihilar bronchial wall thickening, findings sugg estive of respiratory bronchiolitis.
--- OUTSIDE RECORDS SUMMARY | 2025-07-06 13:18 | XMS_ITS | Clinical Summary ---
Author Organization [facility] [employer] Address [address] [facility] [place] [address] Care Team Providers Care Collection Support Specialist Name Role Phone Addi Emmanuel MD Primary Care Provider Source Comments [facility] [employer],non-owned Affiliates and Associated Physician Practices is amultiple site organization consisting of ambulatory clinics and hospital sitesin [place], [place] and [place]. This disclosure is being madepursuant to the Care Everywhere program and may not contain all information available regarding this patient. Last updated 18.[facility] [employer] Allergies Active Allergy Reactions Criticality Noted Date Comments Ibuprofen Nausea and/or Vomiting,Rash High 08/23/20 16 Medications * Be aware that medications may not be up to date on this document. Alwaysverify current medications with the patient. Vit-Fe Fumarate-FA ( VITAMIN) 28-0.8 MG tablet [...] 3) 0.8 % vaginal cream 0 06/18/2018 Act jase nitrofurantoin monohyd macro crystals (MACROBID) 100 MG capsule Take 1 capsule by mouth 2 times daily with morning and evening meal 14 capsule 07/23/2018 Active traMADol (ULTRAM) 50 MG tablet Take 50 mg by mouth every 6 hours as needed for Pain Active Active Problems Patient Care Coordination No te Formatting of this note migh t be different from the original. 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 on file Not on file Not on file Last Filed Vital Signs [...] 6:08 PM CDT Height 160 cm (5' 3) 05/07/2019 6:08 PM CDT Body Mass Index [...] of 3 - 19+ 3-dose series) 1993 SCREENING FOR DIABETES 05/07/2022 9, 08/23/2016, 08/17/2016, Additional history exists DEPRESSION SCREENING 10/21/2024 PNEUMOCOCCAL VACCINE 50+ (1 of 1 - PCV) 2024 ZOSTER VACCINE (1 of 2) 2024 COVID-19 VACCINE (1 - season) 2025 INFLUENZA VACCINE (#1) 2025 HEPATITIS C SCREENING Completed 03/17/2014 HIB VACCINE Aged Out No longer eligi ble based on patient's age to complete this topic HPV VACCINE Aged Out No longer eligi ble based on patient's age to complete this topic MENINGOCOCCAL (Group B) VACCINE SHARED DECISION-MAKING Aged Out No longer eligible based on patient's age to complete this topic MENINGOCOCCAL GROUPS A/C/Y/W VACCINE Aged Out No longer eligible based [...] 6:16 PM CDT 05/07/2019 6:24 PM CDT us Zahida Lucio MD LAB - CHEMISTRY ORDERABLES F inal Result [facility] [address] [place] [address] * HEPATITIS C ANTIBODY (03/17/2014 3:08 PM CDT) Hepatitis C Antibody Non-react jase Non-reac tive [facility] Comment: Hepatitis C Antibody screen indicates [...] 3:08 PM CDT 03/17/2014 3:42 PM CDT us Rand Smith MD LAB - CHEMISTRY ORDERABLES Fi nal Result [address] [phone] from Last 3 Months or Most Recently Relevant to Health Maintenance Insurance MEDICAID - OUT OF STATE UHC MANAGED MEDICARE ADV MEDICAID - [place] MEDICARE Care Teams Collection Support Specialist Relationship Specialty Start Date End Date Addi Emmanuel MD [address] [place] [address] PCP - General 05/20/19
--- OUTSIDE RECORDS SUMMARY | 2025-07-06 13:18 | XMS_ITS | Clinical Summary ---
Author Organization [facility] Address [address] [place] [address] Care Team Providers Care Technical Illustrations Map Inker Name Role Phone Migue Gomes MD Primary Care Provider [phone] Allergies Active Allergy Reactions Criticality Noted Date Comments Ibuprofen Rash Medium 03/25/2025 Medications albuterol HFA (PROVENTIL HFA,VENTOLIN HFA,PROAIR HFA) 90 mcg/actuation inhaler Inhale 2 puffs every 4 (four) hours as needed 5 Active amoxicillin 500 mg capsule Take 1 tablet/capsu le (500 mg total) by mouth 4 (four) times a day 5 Active ARIPiprazole (ABILIFY) 15 mg tablet Take 1 tablet (15 mg total) by mouth daily 5 Active cholecalciferol (VITAMIN D-3) 1,000 unit capsule Take 1 capsule (1,000 Units total) by mouth daily 5 Active famotidine (PEPCID) 20 mg tablet Take 1 tablet (20 mg total) by mouth 2 (two) times a day 5 Active traMADoL (ULTRAM) 50 mg tablet Take 1 tablet (50 mg total) by mouth every 6 (six) hours as needed Active sertraline (ZOLOFT) 100 mg tablet Take 1 tablet (100 mg total) by mouth daily 5 Active ondansetron ODT (ZOFRAN-ODT) 8 mg disintegrating tablet Take 1 tablet (8 mg total) by mouth every 12 (twelve) hours as needed 5 Active norethindrone (AYGESTIN) 5 mg tablet Take 1 tablet (5 mg total) by mouth daily 8 Active traZODone (DESYREL) 100 mg tablet Take 1 tablet (100 mg total) by mouth nightly at bedtime 5 Active Active Problems Problem Noted Date Diagnosed Date Polyp of cervix uteri 03/25/2025 Overview (03/25/2025): Referred for management of cervical polyp found on evaluation for PMB. In-office polypectomy performed with no complications. Return precautions discussed. Will follow-up final pathology. Encounters Date Type Department Care Team Description 04/05/2025 Telephone Obstetrics and Gynecology Clinic [facility] 3rd Floor [address] [place] [address] Evelyn Cochran LPN from Last 3 Months Surgical History Surgery Date Site/Laterality Comments ABDOMINAL SURGERY Abdominal Surgery - Gall stone removal (Added by TW Conv) Medical History Medical History Date Comments Personal history of arthritis Ar thritis - (Added by TW Conv) Personal history of other di seases of the respiratory system Personal history of asthma - (Added by TW Conv) Family History Medical History Relation Name Comments Blindness Child Legally Blind ( [place] Definition) - (Added by [employer] Conv) Cancer Other Reported Family History Of Cancer - aunt Relation: Aunt (Added by Tzee) Relation Name Status Comments Child Other Social History Tobacco Use Types Packs/Day Years Used Date Smoking Tobacco: Every Day Tobacco Cessation:Ready to Q uit: No; Counseling Given: Yes Hunger Vital Sign Answer Date Recorded Within the past 12 months, y ou worried that your food would run out before you got the money to buy more. Never true 03/25/20 25 Within the past 12 months, t he food you bought just didn't last and you didn't have money to get more. Never true 03/25/2025 Personal Safety Answer Date Recorded Have you ever been in or are you currently in a harmful physical or emotional relationship or is someone making you feel afraid or unsafe? 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 Gender Identity Not on file Sexual Orientation Not on file Obstetrics History Para Term AB IAB SAB Ectopic Multiple Livin g Live Births 0 0 0 0 Last Filed Vital Signs Vital Sign Reading Time Taken Comments Blood Pressure 125/62 03/25/2025 1:18 PM CDT Pulse 70 03/25/2025 1:18 PM CDT Temperature 36.4 C (97.6 F) 02/02/2025 8:50 AM CDT Respiratory Rate 18 03/25/2025 1:18 PM CDT Oxygen Saturation 97% 03/25/2025 1:18 PM CDT Inhaled Oxygen Concentration - - Weight 83.1 kg (183 lb 4.8 oz) 03/25/2025 1:18 P M CDT Height 160 cm (5' 3) 03/25/2025 1:18 PM CDT Body Mass Index 32.47 03/25/2025 1:18 PM CDT Plan of Treatment Health Maintenance Due Date Last Done Comments Breast Cancer Screening-Mammogram 1974 Cervical Cancer Screening 1974 Colon Cancer Screening-Colonoscopy 1974 Depression Screening 1974 Hepatitis C Screening 1974 DTaP/Tdap/Td Vaccine (1 - Tdap) 1985 Hepatitis B Screening 1992 Regular Well Visit/Exam 18-64 1992 Pneumococcal vaccine <65 (1 of 2 - PCV) 1993 Zoster Vaccine (1 of 2) 2024 Influenza Vaccine (#1) 2025 07/17/2016, 2014 Insurance [facility] MEDICARE ADVANTAGE [facility] Address: [facility] [address] [place] [address] [employer] MEDICARE ADVANTAGE [facility] Address: [facility] [address] [place] [address] [employer] MEDICARE ADVANTAGE Care Teams Technical Illustrations Map Inker Relationship Specialty Start Date End Date Migue Gomes MD PCP - General 05/30/17
--- OUTSIDE RECORDS SUMMARY | 2025-07-06 13:18 | XMS_ITS | Clinical Summary ---
Author Organization [facility] Address [address] [place] [address] Care Team Providers Care Model Maker Firearms Name Role Phone Nuzhat Andersen MD Primary Care Provider [phone] Allergies Active Allergy Reactions Criticality Noted Date [...] 9:09 AM CDT Height 160 cm (5' 3) 03/12/2022 9:09 AM CDT Body Mass Index 34.37 03/12/2022 9:09 AM CDT Plan of Treatment Health Maintenance Due Date Last Done Comments Cervical Cancer Screening Pa p Smear (Age 30 to 64) Every 3 Years 1974 Colorectal Cancer Screening Colonoscopy (10 Years) 1974 Annual Physical 1977 Hepatitis C 1992 DTaP, Tdap and Td Vaccines ( 1 - Tdap) 1993 Hepatitis B Vaccines (1 of 3 - 19+ 3-dose series) 1993 Pneumococcal Vaccine: 50+ Years (1 of 2 - PCV) 1993 Cervical Cancer Screening Pa p with HPV Testing (Age 30 to 64) Every 5 Years 2004 Cervical Cancer Screening wi th HPV 2004 Mammogram Screening 2014 Zoster Vaccines (1 of 2) 2024 COVID-19 Vaccine (3 - 2024-2 6 season) 2025 02/10/2021, 01/24/2021 Meningococcal B Vaccine Aged Out No l onger eligible based on patient's age to complete this topic Meningococcal Vaccine Aged Out No heike nona eligible based on patient's age to complete this topic RSV Immunizations Under 20 Months Aged Out No longer eligible b ased on patient's age to complete this topic Insurance [facility] [address] Care Teams Model Maker Firearms Relationship Specialty Start Date End Date Nuzhat Andersen MD [address] [place] [phone] PCP - General INTERNAL MEDICINE 03/12/22
== END 2025-07-06 11:08 | disposition home or self-care (01) ==
PROVIDERS: PCP Physician Assistant Medical; Visit Provider Physician Assistant Medical
DX: J06.9 Acute upper respiratory infection, unspecified (principal)
CPT/HCPCS: 71046